=== PATIENT | male | born 1990 | race Caucasian/White ===

== ENCOUNTER 2017-07-13 11:58 | Emergency (ER) | payer SELFPAY ==
[2017-07-13] MEDS ORDERED: Sodium Chloride 0.9% 1,000 ML IV STA (12:16)
[2017-07-13] MEDS ORDERED: Famotidine 20mg/50ml 20 MG/50 ML BAG IVPB STA (12:23)
--- NOTE | 2017-07-13 12:30 | ED PDOC ---
Arrival/HPI - General Chief Complaint: GI Problem Time Seen by Provider: 07/13/17 12:23 Historian: Patient - History of Present Illness Narrative History of Present Illness (Text): 07/13/17 12:25 pt p/w + < 1 day onset of n/v/d; pt states multiple episodes of vomiting ~ >10 times prior to ED arrival, as well as > 10 times of diarrhea; pt states no gross bleeding, no fever/chills/sweats, + felt warm, + throat pain, + mid abd cramps rated at ~ 3-4/10 pain; pt states no cp/sob/palpitations, + decr urination, no LOC, mild lightheadedness, no fall/trauma/travel, ? sick contact; pt works with patients; pt states he had some [employer] h[employer]urgers last night for dinner; pt states no other new foods/diets; pt arrived to ED for further eval, pt's without other complaints. PCP: none Time/Duration: Prior to Arrival Symptom Onset: Sudden Symptom Course: Worsening Quality: Aching Severity Level: 4, Mild Activities at Onset: Rest Context: Home Past Medical History - Provider Review Nursing Documentation Reviewed: Yes - Travel History Have you recently traveled outside [place] w/in the past 3 mons?: No - Past History Past History: No Previous - Infectious Disease Hx of Infectious Diseases: None - Psychiatric Hx Psychophysiologic Disorder: No Hx Substance Use: No - Suicidal Assessment Feels Threatened In Home Enviroment: No Family/Social History - Physician Review Nursing Documentation Reviewed: Yes Family/Social History: No Known Family HX Smoking Status: Never Smoked Hx Alcohol Use: No Hx Substance Use: No Hx Substance Use Treatment: No Allergies/Home Meds Allergies/Adverse Reactions: Allergies No Known Allergies Allergy (Unverified 07/13/17 11:59) Review of Systems - Review of Systems Constitutional: Fatigue Eyes: Normal ENT: Normal Respiratory: Normal Cardiovascular: Normal Gastrointestinal: Abdominal Pain, Diarrhea, Nausea, Vomiting, Appetite Changes Genitourinary Male: Normal Musculoskeletal: Normal Skin: Normal Neurological: Normal Endocrine: Normal Hemo/Lymphatic: Normal Psychiatric: Normal Physical Exam Vital Signs Reviewed: Yes Vital Signs Temp Pulse Resp BP Pulse Ox 07/13/17 13:58 98.6 F 85 19 125/72 99 07/13/17 12:53 99 F 04/15/18 11:59 97.8 F 90 16 143/84 95 Temperature: Afebrile Blood Pressure: Hypertensive Pulse: Regular Respiratory Rate: Normal Appearance: Positive for: Well-Appearing, Uncomfortable, Other (uncomfortable, alert/awake, GCS = 15, oriented x 3, resting in bed, mild distress due to pain; cooperative) Pain Distress: Mild Mental Status: Positive for: Alert and Oriented X 3 - Systems Exam Head: Present: Atraumatic, Normocephalic Pupils: Present: PERRL, Other (wearing eyeglasses, no photophobia, sclera anicteric, no nystagmus) Extroacular Muscles: Present: EOMI Conjunctiva: Present: Normal Ears: Present: Normal Mouth: Present: Dry, Normal Teeth, Other (uvula/tongue are midline, no exudate/ lesions, intact dentitions, no drooling/stridor) Pharnyx: Present: Normal Nose (External): Present: Atraumatic Nose (Internal): Present: Normal Inspection Neck: Present: Normal Range of Motion, Trachea Midline, Other (intact ROM, no midline tenderness, no nuchal rigidity, no meningeal signs). No: Meningeal Signs, MIDLINE TENDERNESS Respiratory/Chest: Present: Clear to Auscultation, Good Air Exchange, Other ( CTA b/l, no w/r/r, no accessory muscle use noted, no tachypenia) Cardiovascular: Present: Regular Rate and Rhythm, Normal S1, S2. No: Murmurs Abdomen: Present: Normal Bowel Sounds, Other (mild mid abd discomfort, well nourished/obese female, no estrada's sign, no mcburney's point tenderness, no masses/rebound/guarding/rigidity) Back: Present: Normal Inspection. No: CVA Tenderness, Midline Tenderness Upper Extremity: Present: Normal Inspection, Normal ROM, NORMAL PULSES, Neurovascularly Intact Lower Extremity: Present: Normal Inspection, NORMAL PULSES, Normal ROM, Neurovascularly Intact, Other (+ ambulatory, neuorvasc intact b/l) Neurological: Present: GCS=15, CN II-XII Intact, Speech Normal Skin: Present: Warm, Normal Color, Other (cap refill ~ 1 sec, no ulcerations, no petechiae, no rashes/lesions) Psychiatric: Present: Alert, Oriented x 3 Medical Decision Making ED Course and Treatment: 07/13/17 12:25 Impression: n/v/d, dehydration i have consider all the differential diagnosis regarding pt's chief medical complaints/clinical findings, including but are not limited to: n/v/d, dehydration A/P: dehydration, n/v/d - labs - iv - ua - supportive care - observe/reevaluation 07/13/17 1430 pt tolerated po well pt without any diarrhea while in the ED pt denied any nausea/vomiting pt felt improved and states he is ready to be released pt is made aware of his medical results pt is encouraged fluid hydration pt is encouraged bland diet pt will f/u as directed pt will be discharged home Re-evaluation Time: 14:30 Reassessment Condition: Improved - Lab Interpretations Lab Results: 07/13/17 12:30 07/13/17 12:30 Lab Results 07/13/17 12:30: Sodium 143, Potassium 4.0, Chloride 104, Carbon Dioxide 26, Anion Gap 18, BUN 15, Creatinine 0.7 L, Est GFR ( Amer) > 60, Est GFR ( Non-Af Amer) > 60, Random Glucose 117 H, Calcium 9.6, Total Bilirubin 0.6, AST 34, ALT 67 H, Alkaline Phosphatase 61, Total Protein 8.1, Albumin 4.8, Globulin 3.2, Albumin/Globulin Ratio 1.5, Lipase 31 07/13/17 12:30: WBC 11.4 H, RBC 5.24, Hgb 14.6, Hct 42.0, MCV 80.2, MCH 27.9, MCHC 34.8, RDW 12.7, Plt Count 288, MPV 11.1 H, Gran % 89.4 H, Lymph % (Auto) 5.9 L, [place] % (Auto) 4.1, Eos % (Auto) 0.5 L, Baso % (Auto) 0.1, Gran # 10.22 H , Lymph # (Auto) 0.7 L, [place] # (Auto) 0.5, Eos # (Auto) 0.1, Baso # (Auto) 0.01 I have reviewed the lab results: Yes Interpretation: All labs normal - Medication Orders Current Medication Orders: Discontinued Medications Acetaminophen (Tylenol 325mg Tab) 650 mg PO STAT STA Stop: 07/13/17 12:25 Last Admin: 07/13/17 12:53 Dose: 650 mg MAR Pain/Vitals Document 07/13/17 12:53 GMI (Rec: 07/13/17 12:54 GMI [place] [id number]) Pain Reassessment Is This A Pain ReAssessment? Yes Sleep Is patient sleeping during reassessment? No Pain Scale Used Pain Scale Used Numeric Location Pain Location Body Site Abdomen Description Intermittent Intensity 4 Pain Behavior Facial Grimacing Aggravating Factors None Alleviating Factors Medication Vitals Temperature (97.6 F-99.6 F) 99 F Temperature Source Oral Sodium Chloride (Sodium Chloride 0.9%) 1,000 mls @ 999 mls/hr IV .Q1H1M STA Stop: 07/13/17 13:16 Last Admin: 07/13/17 12:17 Dose: 999 mls/hr eMAR Start Stop Document 07/13/17 12:17 GMI (Rec: 07/13/17 12:18 GMI [place] [id number]) Intravenous Solution Start Date 07/13/17 Start Time 12:18 Famotidine (Pepcid 20mg/50ml Premix) 20 mg in 50 mls @ 100 mls/hr IVPB STAT STA Stop: 07/13/17 12:52 Last Admin: 07/13/17 12:53 Dose: 100 mls/hr eMAR Start Stop Document 07/13/17 12:53 GMI (Rec: 07/13/17 12:53 [place] [id number]) Intravenous Solution Start Date 07/13/17 Start Time 12:53 Ondansetron HCl (Zofran Inj) 8 mg IVP STAT STA Stop: 07/13/17 12:25 Last Admin: 07/13/17 12:54 Dose: 8 mg IVP Administration Document 07/13/17 12:54 GMI (Rec: 07/13/17 12:54 G[place] [id number]) Charges for Administration # of IVP Administrations 1 Disposition/Present on Arrival - Present on Arrival Any Indicators Present on Arrival: No History of DVT/PE: No History of Uncontrolled Diabetes: No Urinary Catheter: No History of Decub. Ulcer: No History Surgical Site Infection Following: None - Disposition Have Diagnosis and Disposition been Completed?: Yes Diagnosis: Vomiting, Diarrhea, Gastritis, acute, Dehydration Disposition: HOME/ ROUTINE Disposition Time: 14:15 Patient Plan: Discharge Condition: STABLE Discharge Instructions (ExitCare): Gastritis, Diarrhea in Adolescents and Adults, Nausea and Vomiting, Adult (DC) Print Language: WALLISIAN Additional Instructions: Make sure to see your doctor in 1-2 days DRINK PLENTY OF FLUIDS take your medications as prescribed BLAND DIET IS ENCOURAGED AVOID caffiene products RETURN TO ED IF worse pain, cant breath, persistent vomiting, high fever >101- 102 for hours, altered behavior, slurr speech, facial changes, focal weakness ( arm/leg or both), unable to urinate, heavy/persistent bleeding, passing out, chest pain, or other medical emergencies Prescriptions: Famotidine [Pepcid] 20 mg PO BID #14 tab Ondansetron ODT [Zofran ODT] 4 mg PO TID PRN #10 odt PRN Reason: Nausea/Vomiting Referrals: PCP,NO [Primary Care Provider] - Follow up with primary [facility] [Outside] - Follow up with primary [facility] [Outside] - Follow up with primary Forms: [employer] (Italian)
[2017-07-13 12:43] LABS: BASO # 0.01 K/mm3 (0.0-2.0); BASO % 0.1 % (0.0-3.0); EOS # 0.1 (0.0-0.7); EOS % 0.5 % (1.5-5.0); GRAN # 10.22 (1.4-6.5); GRAN % 89.4 % (50.0-68.0); HEMOGLOBIN 14.6 g/dL (14.0-18.0); LYMPH # 0.7 (1.2-3.4); LYMPH % 5.9 % (22.0-35.0); MEAN CELL VOLUME 80.2 fl (80.0-105.0); MEAN CORPUSCULAR HEMOGLOBIN 27.9 pg (25.0-35.0); MEAN CORPUSCULAR HGB CONC 34.8 g/dl (31.0-37.0); MEAN PLATELET VOLUME 11.1 fl (7.0-11.0); MONO # 0.5 (0.1-0.6); MONO % 4.1 % (1.0-6.0); RBC 5.24 10^6/uL (3.5-6.1); RED CELL DISTRIBUTION WIDTH 12.7 % (11.5-14.5); WHITE BLOOD COUNT 11.4 10^3/ul (4.5-11.0)
[2017-07-13 12:52] LABS: ALB/GLOB RATIO 1.5 (1.1-1.8); ALBUMIN 4.8 g/dL (3.0-4.8); ALT/SGPT 67 U/L (7-56); AST/SGOT 34 U/L (17-59); BLOOD UREA NITROGEN 15 mg/dL (7-21); CALCIUM 9.6 mg/dL (8.4-10.5); GFR AFRICAN-AMERICAN > 60; GFR NON-AFRICAN AMERICAN > 60; LIPASE 31 U/L (23-300)
[2017-07-13 14:44] VITALS: BP 125/72; PULSE 85; RESP 19; TEMP 98.6; O2SAT 99
[2017-07-13 16:28] LABS: URINE BILIRUBIN NEGATIVE (NEGATIVE); URINE BLOOD NEGATIVE (NEGATIVE); URINE GLUCOSE (UA) NEGATIVE (NEGATIVE); URINE LEUKOCYTE ESTERASE NEGATIVE Leu/uL (NEGATIVE); URINE PROTEIN NEGATIVE mg/dL (<30 mg/dL); URINE UROBILINOGEN 0.2 E.U./dL (<1 E.U./dL)
[2017-07-13 16:41] LABS: URINE APPEARANCE CLEAR (CLEAR); URINE COLOR YELLOW (YELLOW)
== END 2017-07-13 14:48 | disposition home or self-care (01) ==
LOC: ED 11:58
DX: K29.00 Acute gastritis without bleeding (principal); E86.0 Dehydration; R19.7 Diarrhea, unspecified; R11.10 Vomiting, unspecified
CPT/HCPCS: 80053; 81003; 83690; 85025; 96374; 99284; J2405; J7040

== ENCOUNTER 2017-09-09 20:46 | Emergency (ER) | payer OTHER ==
--- NOTE | 2017-09-09 20:55 | ED PDOC ---
Arrival/HPI - General Historian: Patient <Gurdeep Trivedi A - Last Filed: 09/09/17 20:58> <Javier Bedolla - Last Filed: 09/09/17 21:29> - General Chief Complaint: Abnormal Skin Integrity Time Seen by Provider: 09/09/17 20:54 - History of Present Illness Narrative History of Present Illness (Text): 09/09/17 20:58 27yo male present with excoriation to his left forearm. 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 He states he is not up to date with his TD booster. She denies pain to the area. Denies any other complaint. (Gurdeep Trivedi A) Past Medical History - Provider Review Nursing Documentation Reviewed: Yes - Past History Past History: No Previous - Infectious Disease Hx of Infectious Diseases: None - Psychiatric Hx Psychophysiologic Disorder: No Hx Substance Use: No - Suicidal Assessment Feels Threatened In Home Enviroment: No <Gurdeep Trivedi A - Last Filed: 09/09/17 20:58> Family/Social History - Physician Review Nursing Documentation Reviewed: Yes Family/Social History: Unknown Family HX Smoking Status: Never Smoked Hx Alcohol Use: No Hx Substance Use: No Hx Substance Use Treatment: No <Gurdeep Trivedi A - Last Filed: 09/09/17 20:58> Allergies/Home Meds <Gurdeep Trivedi A - Last Filed: 09/09/17 20:58> <Javier Bedolla - Last Filed: 09/09/17 21:29> Allergies/Adverse Reactions: Allergies No Known Allergies Allergy (Unverified 07/13/17 11:59) Review of Systems - Physician Review All systems were reviewed & negative as marked: Yes - Review of Systems Constitutional: Normal Eyes: Normal ENT: Normal Respiratory: Normal Cardiovascular: Normal Gastrointestinal: Normal Genitourinary Male: Normal Musculoskeletal: Normal Skin: Other (Excoriation to left forearm) Neurological: Normal Endocrine: Normal Hemo/Lymphatic: Normal Psychiatric: Normal <Gurdeep Trivedi A - Last Filed: 09/09/17 20:58> Physical Exam Vital Signs Reviewed: Yes Temperature: Afebrile Blood Pressure: Normal Pulse: Regular Respiratory Rate: Normal Appearance: Positive for: Well-Appearing, Non-Toxic, Comfortable Pain Distress: None Mental Status: Positive for: Alert and Oriented X 3 - Systems Exam Head: Present: Atraumatic, Normocephalic Pupils: Present: PERRL Extroacular Muscles: Present: EOMI Conjunctiva: Present: Normal Mouth: Present: Moist Mucous Membranes Neck: Present: Normal Range of Motion Respiratory/Chest: Present: Clear to Auscultation, Good Air Exchange. No: Respiratory Distress, Accessory Muscle Use Cardiovascular: Present: Regular Rate and Rhythm, Normal S1, S2. No: Murmurs Abdomen: No: Tenderness, Distention, Peritoneal Signs Back: Present: Normal Inspection Upper Extremity: Present: Normal Inspection. No: Cyanosis, Edema Lower Extremity: Present: Normal Inspection. No: Edema Neurological: Present: GCS=15, CN II-XII Intact, Speech Normal Skin: Present: Warm, Dry, Normal Color, Other (Linear excoriation up to 7cm noted on volar left forearm). No: Rashes Psychiatric: Present: Alert, Oriented x 3, Normal Insight, Normal Concentration <Gurdeep Trivedi - Last Filed: 09/09/17 20:58> Vital Signs Temp Pulse Resp BP Pulse Ox 09/09/17 20:56 98.2 F 09/09/17 20:53 52 L 18 152/92 H 98 Medical Decision Making <Gurdeep Trivedi - Last Filed: 09/09/17 20:58> <Javier Bedolla - Last Filed: 09/09/17 21:29> ED Course and Treatment: 09/09/17 21:00 wound irrigated with NS , bacitracine applied and dressed. PT advised to keep wound clean and dry. Referred to [facility] (Gurdeep Trivedi) - Medication Orders Current Medication Orders: Discontinued Medications Tetanus/Reduced Diphtheria/Acell Pertussis (Boostrix Vaccine Inj) 0.5 ml IM .ONCE ONE Stop: 09/09/17 20:57 - PA / WAIST PLEATER / Resident Statement MARCELINO has reviewed & agrees with the documentation as recorded. MARCELINO has examined the patient and agrees with the treatment plan. <Javier Bedolla - Last Filed: 09/09/17 21:29> Disposition/Present on Arrival - Present on Arrival Any Indicators Present on Arrival: No History of DVT/PE: No History of Uncontrolled Diabetes: No Urinary Catheter: No History Surgical Site Infection Following: None - Disposition Have Diagnosis and Disposition been Completed?: Yes Disposition Time: 21:05 Patient Plan: Discharge <Gurdeep Trivedi - Last Filed: 09/09/17 20:58> <Javier Bedolla - Last Filed: 09/09/17 21:29> - Disposition Diagnosis: Excoriation of forearm Disposition: HOME/ ROUTINE Patient Problems: Current Active Problems Problem Status Onset Excoriation of forearm Acute Condition: STABLE Discharge Instructions (ExitCare): Skin Abrasions Additional Instructions: [employer] [facility] [employer] Employee Regarding your Work Related Injury, you are instructed to do all of the following by next day: 1. Notify [employer] [facility] Employee Health Department of the sustained injury and arrange for any follow-up appointments if needed during the next business day. If the office is closed or no answer is received, please leave a detailed voice message. Message should include your full name, department and home manager, date of injury, date of ED visit if applicable. Employee Health can be reached at [phone]. 2. If there is time lost, notify [facility] Human Resources Department of the work related injury the next business day at [phone]. Keep wound clean and dry Follow up with your Doctor Return to ED for any new or worsening symptoms Prescriptions: Bacitracin Ointment [Bacitracin] 30 gm TOP BID #1 tube Referrals: Vladimir Yeboah [Primary Care Provider] - Follow up with primary Forms: [employer] (Upper Sorbian)
[2017-09-09] MEDS ORDERED: TDAP Vaccine 0.5 mL Syr IM ONE (20:56)
[2017-09-09 21:01] VITALS: BP 152/92; PULSE 52; RESP 18; TEMP 98.2; O2SAT 98; BMI 43.9
== END 2017-09-09 21:26 | disposition home or self-care (01) ==
LOC: ED 20:46
DX: S50.812A Abrasion of left forearm, initial encounter (principal); W50.4XXA Accidental scratch by another person, initial encounter; Z23 Encounter for immunization